=== PATIENT | female | born 1990 | race Caucasian/White ===

== ENCOUNTER 2017-08-28 10:41 | Outpatient (CLI) | payer BC ==
--- NOTE | 2017-08-28 13:55 | RAD ---
HYSTEROSALPINGOGRAM: HISTORY: Tubal patency evaluation. COMPARISON: None. FLUOROSCOPY TIME: 0.9 minutes with 426.8 mGy per m2. FINDINGS: Retrograde opacification of the endometrium was performed. There was tubal patency bilaterally. The re was free spillage in the left and right hemipelvis. The lower uterine segment is unremarkable. IMPRESSION: 1. Bilateral tubal patency. 2. Free spillage in the left and right hemipelvis. POS: ANÍBAL
[2017-08-28] MEDS ORDERED: Iopamidol 300 61% 30 ML VIAL ONE (15:08)
== END 2017-08-28 10:42 | disposition home or self-care (01) ==
LOC: RAD 10:41
PROVIDERS: ATTEND Obstetrics & Gynecology
DX: Z31.41 Encounter for fertility testing (principal)
CPT/HCPCS: 58340; 74740

== ENCOUNTER 2018-03-29 08:21 | Outpatient (CLI) | payer BC ==
[2018-03-29 10:10] LABS: Hemoglobin 14.7 g/dL (12.0-16.0); Mean Corpuscular HGB CONC 33.8 g/dL (32.0-36.0); Mean Corpuscular Hemoglobin 29.9 pg (27.0-31.0); Mean Corpuscular Volume 88.4 fL (78.0-98.0); Platelet Count 217 thou/uL (130-400); RBC Distribution Width 11.5 % (11.5-14.5); Red Blood Cell (RBC) Count 4.93 mill/uL (4.20-5.40); White Blood Cell (WBC) Count 4.4 thou/uL (4.8-10.8)
[2018-03-29 10:11] LABS: BHCG - Serum Negative (NEGATIVE); Pregs Control Background? CLEAR/WHITE (CLR/WHITE); Pregs Control Bar Appear? YES (CONTROL BAR)
== END 2018-03-29 08:22 | disposition home or self-care (01) ==
LOC: LABBT 08:21
PROVIDERS: ATTEND Obstetrics & Gynecology
DX: Z01.812 Encounter for preprocedural laboratory examination (principal); N94.6 Dysmenorrhea, unspecified; N80.1 Endometriosis of ovary
CPT/HCPCS: 84703; 85027; 86850; 86900; 86901

== ENCOUNTER 2018-04-01 10:39 | Day surgery (SDC) | payer BC ==
[2018-03-29 08:49] VITALS: BMI 23.0
[2018-04-01] MEDS ORDERED: Gabapentin 300 MG CAP ONE (10:57)
[2018-04-01] MEDS ORDERED: Famotidine/PF 20 mg/2ml Vial ONE (10:57)
--- NOTE | 2018-04-01 10:57 | HP ---
SCHEDULED DATE OF SURGERY: 04/01/2018. HISTORY OF PRESENT ILLNESS: Ms. Wang is a 27-year-old white female, G0, who is to undergo robotic ovarian cystectomy for endometrioma noted on her left ovary. She has been noticing increasing dysmenorrhea and some more back pain associated with her menstrual cycles recently. She has also had difficulty in conceiving for 4 years. She has had a workup in regard to this showing a normal hysterosalpingogram, August 2017. Her had a normal semen analysis in August 2017. She had a luteal phase progesterone, which is 9.6, consistent with ovulation and along with TSH thyroid which was 3.4. She has planned to undergo a Clomid-IUI and transvaginal ultrasound for pre-Clomid use was significant for a finding of 1.8 x 1.7 cm endometrioma on the left ovary. As noted, she has been having increasing dysmenorrhea and some dyspareunia recently. PAST MEDICAL HISTORY: Otherwise, negative. PAST SURGICAL HISTORY: Negative. SOCIAL HISTORY: Nonsmoker. She is . FAMILY HISTORY: Noncontributory. RELAY MECHANIC HISTORY: Her last Pap smear was normal in August 21, 2017. ALLERGIES: SHE HAS NO KNOWN DRUG ALLERGIES. PHYSICAL EXAMINATION: VITAL SIGNS: Her height is 6 feet 0 inches, weight 178, BMI 24.1, blood pressure 120/78, pulse 65 and regular, and respiratory rate is 18. HEENT: Within normal limits. CHEST: Clear to auscultation. HEART: Regular rate and rhythm. S1 and S2 heart sounds. No murmurs, rubs, or gallops. ABDOMEN: Soft, nontender, nondistended with no palpable masses. had no lesions. Cervix had no lesions. Uterus is firm and nontender. Right adnexa nontender with no masses. Left adnexa had some fullness with mild posterior cul-de-sac tenderness on exam noted on previous pelvic. ASSESSMENT: This is a 27-year-old white female, G0, with severe dysmenorrhea and endometrioma noted on the left ovary. PLAN: Plan is to proceed with robotic laparoscopic left ovarian cystectomy and also ablation of any other fulguration and excision of other lesions of pelvic endometriosis as encountered. We will also perform a chromotubation of the fallopian tubes at that time to reassess tubal patency. Risks and benefits of the procedure had been discussed in detail. She has had another followup thyroid study on 02/20 showing a normal TSH of 1.98 and free T4 of 1.27. Her date of surgery is 04/01/2018. She has followup scheduled in 4 weeks. Job ID: [id number]
[2018-04-01] MEDS ORDERED: CEFAZOLIN 2 GM/50 ML BAG ONE (10:58)
[2018-04-01] MEDS ORDERED: CeleCOXIB 100 MG CAP ONE (10:58)
[2018-04-01] MEDS ORDERED: Bupivacaine HCl 0.5%/Epinephrine 1:200,000/PF 30 ml Vial ONE (11:11)
[2018-04-01] MEDS ORDERED: Midazolam HCl 2 mg/2 ml Vial ONE (11:57)
[2018-04-01] MEDS ORDERED: Fentanyl 250 MCG/5 ML VIAL ONE (14:11)
[2018-04-01] MEDS ORDERED: Fentanyl 100 MCG/2 ML VIAL ONE (16:44)
[2018-04-01] MEDS ORDERED: Promethazine HCl 25 MG/ML VIAL ONE (17:00)
[2018-04-01] MEDS ORDERED: HYDROcodone/Acetaminophen 5/325 mg Tablet ONE ×2 (18:33→19:43)
--- NOTE | 2018-04-01 23:33 | OP ---
DATE OF PROCEDURE: 04/01/2018 PREOPERATIVE DIAGNOSES: 1. A 27-year-old white female G0 with secondary dysmenorrhea. 2. Sonographic left ovarian endometrioma noted. POSTOPERATIVE DIAGNOSES: 1. A 27-year-old white female G0 with secondary dysmenorrhea. 2. Sonographic left ovarian endometrioma noted. PROCEDURES PERFORMED: 1. Robotic left ovarian cystectomy of chocolate cyst of the ovary/endometrioma. 2. Chromotubation of fallopian tubes. RAYON TESTER SURGEON: Evelina Maria DO. ANESTHESIA: General endotracheal. ESTIMATED BLOOD LOSS: 10 mL. COMPLICATIONS: None. COUNTS: Correct x2. ANTIBIOTICS: 2 g Ancef, on-call to OR. PATHOLOGY: Ovarian cyst wall. FINDINGS: 1. Normal-appearing right ovary and fallopian tube and uterus. Normal-appearing posterior cul-de-sac and anterior cul-de-sac peritoneum. 2. Left fimbria, fallopian tube incorporated into the endometrium of the left ovary. 3. Post excision of ovarian endometrioma with freeing of the left fallopian tube fimbria. 4. Left fallopian tube was patent to chromotubation of methylene blue post ovarian cystectomy release. 5. Normal-appearing liver and appendix. DISPOSITION: To recovery room stable and then plan for discharge home. DESCRIPTION OF PROCEDURE: The patient previously received informed consent in regard to surgery, was taken back to the operating room where she received a general endotracheal anesthetic agent without complications. She was placed in dorsal lithotomy position with use of Feroz stirrups, and prepped and draped in usual sterile fashion. Bronson catheter was placed along with sidearm speculum. The anterior lip of the cervix was grasped with single-tooth tenaculum and the uterus was sounded to 8 cm. A [employer] diagnostic uterine manipulator was placed. Attention was then turned to the abdomen, where perspective trocar sites were infiltrated with 0.5% Marcaine with epinephrine. An 8 mm infraumbilical incision was made. Veress needle was entered into the peritoneal cavity. The patient's pressure was less than 5 mm. Abdomen was insufflated with the patient's pressure of 15 approximately 5 L of carbon dioxide gas. Veress needle was then removed and a size 8.5 mm trocar was placed. The robotic 8.5 mm scope was then placed through the trocar sleeve confirming proper entry. Additional bilateral lower quadrant 8 mm trocars were placed under laparoscopic guidance along with the right upper quadrant 5 mm assistant department manager port. The pelvis was inspected with the previously mentioned findings. My assistant department manager used an atraumatic grasper to grasp the left fallopian tube. This allowed for me to utilize the bipolar fenestrated cautery and monopolar scissors to incise along the edge of the endometrioma and fimbrial region of the tube, which was tucked in and essentially closed off from its patent opening. This incision was made and then the monopolar scissors was exchanged for a needle armor reconnaissance vehicle driver. I was able to dissect sharply and bluntly freeing the ovary from the adhesions of the distal fallopian tube region. Then, this allowed for me to grasp the cyst wall of the endometrioma. Chocolaty cyst material had drained out from this. My assistant department manager grabbed the edge of the cyst of the ovarian tissue and while I grabbed the cyst wall of the endometrioma with the bipolar fenestrated cautery and needle drivers releasing this and taking this up away. The bed of the cyst wall was made hemostatic with the bipolar fenestrated cautery. The edges of the fimbria then were opened and this allowed for freeing of this from the cyst wall. Any edges of oozing on the fimbriae were lightly cauterized to gain hemostasis. The rest of the pelvis was inspected and no active endometriosis was noted. A chromotubation was then performed. The VCare device appeared to have a malfunction and not allowing pushing of the fluid, so we switched this off to 6 cm Digna uterine manipulator and then the chromotubation was carried out. Dilute methylene blue dye was released from the right fallopian tube, confirming its patency in the left fallopian tube also was spilling dye confirming patency. Again hemostasis was confirmed. Pelvis was irrigated and suctioned. The robot was then undocked and then the trocar sleeves were removed. The trocar sites were closed with 4-0 Monocryl subcuticular stitches with Dermabond. The vaginal region was noted to be hemostatic after the manipulator had been removed. The patient was awakened from anesthesia and transferred to recovery room in stable condition. Job ID: [id number]
== END 2018-04-01 21:18 | disposition home or self-care (01) ==
LOC: SDC 10:39
PROVIDERS: ATTEND Obstetrics & Gynecology
PROC: 3E1P88Z Irrigation of Female Reproductive using Irrigating Substance, Via Natural or Artificial Opening Endoscopic (ICD-10-PCS; principal; 2018-04-01)
PROC: 0UB14ZZ Excision of Left Ovary, Percutaneous Endoscopic Approach (ICD-10-PCS; principal; 2018-04-01)
DX: N80.1 Endometriosis of ovary (principal); N94.6 Dysmenorrhea, unspecified; Z79.899 Other long term (current) drug therapy
CPT/HCPCS: 88307; 96374; J0670; J2250; J2550; J3010; Q9968; S0028